=== PATIENT | female | born 1975 | race Caucasian/White ===

== ENCOUNTER 2019-06-16 21:10 | Emergency (ER) | payer OTHER, SELFPAY ==
[2019-06-16 21:36] VITALS: BP 147/91; PULSE 60; RESP 14; TEMP 37.2; O2SAT 99; BMI 28.3
--- NOTE | 2019-06-16 22:01 | PC.NURSE ---
pt sitting on the floor, door is open to hallway and lights are on.
[2019-06-16 22:21] LABS: Urine Tetrahydrocannabinol Positive (Negative)
[2019-06-16 22:22] LABS: Urine Amphetamines Negative (Negative); Urine Barbiturates Negative (Negative); Urine Benzodiazepines Positive (Negative); Urine Cocaine Negative (Negative); Urine MDMA Negative (Negative); Urine Methadone Negative (Negative); Urine Methamphetamines Negative (Negative); Urine Morphine/Opi cutoff 2000 Negative (Negative); Urine Oxycodone Negative (Negative); Urine Phencyclidine Negative (Negative); Urine Tricyclic Antidepressant Negative (Negative)
--- NOTE | 2019-06-16 22:34 | PC.NURSE ---
pt talking with
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
[2019-06-16 22:54] LABS: Add Manual Diff / Slide Review NO; Basophils Absolute Auto 100 /uL (0-100); Basophils Percent Auto 0.7 % (0-2); Eosinophils Absolute Auto 100 /uL (0-450); Eosinophils Percent Auto 1.1 % (2-4); Hematocrit 41.3 % (36-46); Hemoglobin 14.3 g/dL (12.0-16.0); Lymphocytes Absolute Auto 1900 /uL (1100-4500); Lymphocytes Percent Auto 20.9 % (25-40); Mean Corpuscular HGB Conc 34.6 % (30-36); Mean Corpuscular Hemoglobin 31.6 PG (26-34); Mean Corpuscular Volume 91.3 fL (80-100); Monocytes Absolute Auto 400 /uL (0-900); Monocytes Percent Auto 4.6 % (3-14); Neutrophils Absolute Auto 6800 /uL (1500-7000); Neutrophils Percent Auto 72.7 % (50-75); Platelet Count 295 X10^3/uL (150-400); Red Blood Cell Count 4.53 X10^6/uL (4.0-5.2); Red Cell Distribution Width 13.6 % (11.6-14.8); White Blood Cell Count 9.3 X10^3/uL (4.5-11.0)
[2019-06-16 23:02] LABS: Alanine Aminotransferase 15 IU/L (9-52); Albumin 4.7 g/dL (3.5-5.0); Albumin Globulin Ratio 1.5 (1.0-2.8); Alkaline Phosphatase 60 U/L (38-126); Aspartate Aminotransferase 19 IU/L (14-36); BUN Creatinine Ratio 17.5 (6-22); Bilirubin Total 1.5 mg/dL (0.2-1.3); Blood Urea Nitrogen 14 mg/dL (7-17); Calcium 9.4 mg/dL (8.4-10.2); Carbon Dioxide 26 mmol/L (22-32); Chloride 102 mmol/L (98-107); Estimated Glomerular Filt Rate > 60.0 mL/min (>60); Ethanol (ETOH) < 10 mg/dL; Globulin 3.2 g/dL (1.7-4.1); Glucose 104 mg/dL (70-100); HEMOLYSIS < 15 (0-50); Potassium 4.1 mmol/L (3.4-5.1); Sodium 141 mmol/L (137-145); Total Protein 7.9 g/dL (6.3-8.2)
[2019-06-16 23:03] LABS: Acetaminophen < 10 ug/mL (10-30); Salicylate < 1.0 mg/dL (<20)
[2019-06-16] MEDS: QUETIAPINE 25 MG TABLET 50 MG PO (23:05)
[2019-06-16] MEDS: LORazepam 0.5 MG TABLET 1 MG PO (23:06)
--- NOTE | 2019-06-16 23:12 | PC.NURSE ---
Pt sitting on floor, banging her head against the wall and hitting her forehead with closed fists. I just want these thoughts to stop! Pt medicated per order with Seroquel and ativan.
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
[2019-06-16 23:42] LABS: Thyroid Stimulating Hormone 2.64 uIU/mL (0.47-4.68)
[2019-06-17] MEDS: HALOPERIDOL 5 MG TABLET PO (00:05)
--- NOTE | 2019-06-17 00:12 | PC.NURSE ---
[facility] x 2 paged out for sitter, no response. outpatient coordinator phoned, no acute care [facility] available either. ER ASSESSMENT DIRECTOR now seated at doorway for pt safety.
--- NOTE | 2019-06-17 00:37 | PC.NURSE ---
Pt now lying in bed with eyes closed, resps even/unlabored.
[2019-06-17 05:54] VITALS: BP 126/86; PULSE 71; RESP 18; TEMP 36.4; O2SAT 100
--- NOTE | 2019-06-17 05:56 | PC.NURSE ---
Patient woke up and needed to use the restroom. She ambulated to bathroom in room 13 independently. I offered her a snack and something to drink before breakfast. She declined. Both RN and physician spoke to patient and updated her regarding her care. The patient was both compliant and calm at this time.
[2019-06-17 08:03] VITALS: BP 132/96; PULSE 80; RESP 16; TEMP 36.8; O2SAT 100
--- NOTE | 2019-06-17 08:46 | PC.NURSE ---
Pt is sitting up on stretcher, speaking with high school social studies tutorCatarina. KENTRELL
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
[2019-06-17] MEDS: CITALOPRAM 20 MG TABLET 40 MG PO (11:11)
[2019-06-17] MEDS: PROPRANOLOL 10 MG TABLET 20 MG PO (11:12)
[2019-06-17] MEDS: PREGABALIN 75 MG CAPSULE 150 MG PO (11:12)
[2019-06-17 12:51] VITALS: BP 133/87; PULSE 72; RESP 15; O2SAT 99
--- NOTE | 2019-06-17 12:55 | PC.NURSE ---
mother is in room with pt, door is open to qureshi and lights are on.
--- NOTE | 2019-06-17 14:34 | PC.NURSE ---
Pt asking for update on plan. Pt on cell phone with [facility]. I called Catarina, the social contact worker handling this patient's case. Left message asking for return call. KENTRELL
--- NOTE | 2019-06-17 15:35 | PC.NURSE ---
Addendum entered by Vane Mcdonald R.N. 06/17/19 16:22: Gave report to nurseAshley. Original Note: side door worker discussing plan with patient.
--- NOTE | 2019-06-17 15:40 | PC.NURSE ---
[employer] Note Pt. emotional asking if her children can visit her before she transfers. I have asked the RN
[2019-06-17] MEDS: LORazepam 0.5 MG TABLET 1 MG PO (16:31)
--- NOTE | 2019-06-17 16:32 | CM.SWNOTE ---
In addition, attempted these facilities, no beds or not appropriate for treatment of this 44 yo: MARLA Navarrete
[2019-06-17 16:53] VITALS: BP 142/90; PULSE 64; RESP 16; TEMP 37.6; O2SAT 96
== END 2019-06-17 17:53 ==
PROVIDERS: Emergency Medicine; Emergency Provider Emergency Medicine
DX: R45.851 Suicidal ideations (principal); F41.9 Anxiety disorder, unspecified
CPT/HCPCS: 36415; 80053; 80305; 80320; 80329; 81003; 81025; 84443; 85025; 99285; G0480